=== PATIENT | female | born 1985 | race Caucasian/White ===

== ENCOUNTER 2020-06-24 15:13 | Emergency (ER) | payer MEDICAID ==
[~2020-06-24] VITALS: Ht 157.5 cm; Wt 66.7 kg
[2020-06-24 15:20] VITALS: BP 140/103
--- NOTE | 2020-06-24 15:20 | NUR ---
C/O EPIGASTRIC PAIN X1 WEEK. PT ALSO C/O N/V WITH DIZZINESS. PT STATES SHE HAD STIMULATION TO HER BACK 06/11/2020 UNDER GENERAL ANESTHESIA HX DENIES RX DENIES
[2020-06-24] MEDS ORDERED: MORPHINE SULFATE 4 MG/ML SYR IVP ONE (15:45)
[2020-06-24] MEDS ORDERED: DICYCLOMINE HCL LIQUID 20 MG, ALUMINUM HYD/MAG/SIMETHICONE 30 ML, LIDOCAINE VISCOUS 2% ... PO ONE ×3 (15:45)
[2020-06-24] MEDS ORDERED: ONDANSETRON 4 MG/2 ML VIAL IVP ONE (15:45)
[2020-06-24] MEDS ORDERED: ALUMINUM HYD/MAG/SIMETHICONE 30 ML UDC ONE (16:01)
[2020-06-24] MEDS ORDERED: LIDOCAINE VISCOUS 2% 20 ML UDC ONE (16:01)
[2020-06-24] MEDS ORDERED: DICYCLOMINE HCL LIQUID 10 MG/5 ML UDC ONE (16:02)
[2020-06-24 16:22] LABS: BASOPHILS # (AUTO) 0.1 K/uL (0.00-0.22); BASOPHILS % (AUTO) 0.7 % (0.0-2.0); EOSINOPHILS # (AUTO) 0.2 K/uL (0-0.4); EOSINOPHILS % (AUTO) 1.5 % (0.0-4.0); HEMATOCRIT 37.6 % (36-48); HEMOGLOBIN 12.2 g/dL (12.0-16.0); LYMPHOCYTES # (AUTO) 2.5 K/uL (2.5-16.5); LYMPHOCYTES % (AUTO) 21.5 % (20.5-51.1); MEAN CORPUSCULAR HEMOGLOBIN 29 pg (27-31); MEAN CORPUSCULAR HGB CONC 33 g/dL (33-37); MEAN CORPUSCULAR VOLUME 88.3 fL (80-94); MONOCYTES # (AUTO) 0.7 K/uL (0.8-1.0); MONOCYTES % (AUTO) 5.5 % (1.7-9.3); NEUTROPHILS # (AUTO) 8.4 K/uL (1.8-7.7); NEUTROPHILS % (AUTO) 70.8 % (42.2-75.2); PLATELET COUNT (AUTO) 444 K/uL (140-450); RED BLOOD CELL COUNT(AUTO) 4.26 MIL/uL (4.20-5.40); RED CELL DISTRIBUTION WIDTH 13.9 % (11.6-13.7); WHITE BLOOD COUNT (AUTO) 11.8 K/uL (4.8-10.8)
[2020-06-24 16:40] LABS: ALBUMIN 4.4 g/dL (3.4-5.0); ANION GAP 11.1 (8-16); CARBON DIOXIDE 28.7 mmol/L (21-32); CREATININE 0.7 mg/dL (0.6-1.3); POTASSIUM 3.8 mmol/L (3.5-5.1); TOTAL BILIRUBIN 0.3 mg/dL (0.0-1.0)
[2020-06-24] MEDS ORDERED: KETOROLAC 30 MG/ML VIAL IM ONE (18:30)
--- NOTE | 2020-06-24 19:10 | NUR ---
Report given to RADHA Mills.
--- NOTE | 2020-06-24 19:10 | NUR ---
REPORT RECEIVED FROM RADHA MURPHY FOR CONTINUATION OF CARE.
[2020-06-24 20:16] LABS: APPEARANCE,URINE CLEAR (CLEAR); BILIRUBIN,URINE NEGATIVE (NEGATIVE); BLOOD, URINE NEGATIVE (NEGATIVE); COLOR,URINE YELLOW (YELLOW); LEUKOCYTE ESTERASE ,URINE NEGATIVE (NEGATIVE); NITRITE, URINE NEGATIVE (NEGATIVE); UGLUCOSE NEGATIVE (NEGATIVE)
[2020-06-24] MEDS ORDERED: MAG-27 PO (20:22)
[2020-06-24] MEDS ORDERED: NAPR-54 PO (20:22)
--- NOTE | 2020-06-24 20:30 | NUR ---
Pt states pain is a lot better just a little pain at this time. Pt resting in bed, locked and in lowest position, HOB elevated, VSS. No acute distress noted.
--- NOTE | 2020-06-24 20:59 | NUR ---
Dr. Khan examining patient.
--- NOTE | 2020-06-24 21:00 | NUR ---
IV removed, catheter intact and site benign. Applied folded 4x4 gauze and tape to stop bleeding.
[2020-06-24 21:05] VITALS: BP 135/75
--- NOTE | 2020-06-24 21:05 | NUR ---
Patient discharged with v/s stable. Written and verbal after care instructions given and explained. Patient alert, oriented and verbalized understanding of instructions. Ambulatory with steady gait. All questions addressed prior to discharge. ID band removed. Patient advised to follow up with PMD. Rx of MYLANTA & NAPROXEN given. Patient educated on indication of medication including possible reaction and side effects. Opportunity to ask questions provided and answered.
== END 2020-06-24 21:05 | disposition home or self-care (01) ==
LOC: MED 15:13
DX: K80.20 Calculus of gallbladder without cholecystitis without obstruction (principal); Z79.899 Other long term (current) drug therapy; Z98.890 Other specified postprocedural states
CPT/HCPCS: 36415; 76705; 80053; 81003; 81025; 83690; 85025; 93005; 96372; 96374; 96375; 99285; J1885; J2270; J2405

== ENCOUNTER 2022-07-22 17:09 | Emergency (ER) | payer MEDICAID ==
[~2022-07-22] VITALS: Ht 162.6 cm; Wt 72.6 kg
[~2022-07-22 17:09] MED LIST: MAG-27 PO; NAPR-54 PO
[2022-07-22 17:29] VITALS: BP 132/82
--- NOTE | 2022-07-22 17:50 | NUR ---
patient presenty to er c/o abdominal pain today denies nausea vomiting constipation.
[2022-07-22 18:17] LABS: BASOPHILS # (AUTO) 0.1 K/uL (0.00-0.22); BASOPHILS % (AUTO) 0.7 % (0.0-2.0); EOSINOPHILS # (AUTO) 0.1 K/uL (0-0.4); EOSINOPHILS % (AUTO) 1.5 % (0.0-4.0); HEMATOCRIT 34.4 % (36-48); HEMOGLOBIN 11.7 g/dL (12.0-16.0); LYMPHOCYTES # (AUTO) 3.3 K/uL (2.5-16.5); LYMPHOCYTES % (AUTO) 35.8 % (20.5-51.1); MEAN CORPUSCULAR HEMOGLOBIN 30 pg (27-31); MEAN CORPUSCULAR HGB CONC 34 g/dL (33-37); MEAN CORPUSCULAR VOLUME 86.8 fL (80-94); MONOCYTES # (AUTO) 0.4 K/uL (0.8-1.0); MONOCYTES % (AUTO) 4.9 % (1.7-9.3); NEUTROPHILS # (AUTO) 5.2 K/uL (1.8-7.7); NEUTROPHILS % (AUTO) 57.1 % (42.2-75.2); PLATELET COUNT (AUTO) 390 K/uL (140-450); RED BLOOD CELL COUNT(AUTO) 3.96 MIL/uL (4.20-5.40); RED CELL DISTRIBUTION WIDTH 14.2 % (11.6-13.7); WHITE BLOOD COUNT (AUTO) 9.1 K/uL (4.8-10.8)
[2022-07-22] MEDS ORDERED: ONDANSETRON 4 MG/2 ML VIAL IVP ONE (18:25)
[2022-07-22] MEDS ORDERED: NACL 0.9% 1,000 ML IV ONE (18:25)
[2022-07-22] MEDS ORDERED: MORPHINE SULFATE 4 MG/ML SYR IVP ONE ×2 (18:25→21:20)
[2022-07-22 18:46] LABS: ALBUMIN 3.7 g/dL (3.4-5.0); CARBON DIOXIDE 23.1 mmol/L (21-32); CREATININE 0.9 mg/dL (0.6-1.3); POTASSIUM 4.1 mmol/L (3.5-5.1); TOTAL BILIRUBIN 0.3 mg/dL (0.0-1.0)
[2022-07-22 18:49] LABS: APPEARANCE,URINE CLEAR (CLEAR); BILIRUBIN,URINE NEGATIVE (NEGATIVE); BLOOD, URINE 2+ (NEGATIVE); COLOR,URINE YELLOW (YELLOW); LEUKOCYTE ESTERASE ,URINE NEGATIVE (NEGATIVE); NITRITE, URINE NEGATIVE (NEGATIVE); UGLUCOSE NEGATIVE (NEGATIVE)
[2022-07-22 19:07] LABS: RBC,URINE 11-20 (MOD) /HPF (0-5)
--- NOTE | 2022-07-22 19:20 | NUR ---
REPORT FR AI RN . ALL QUESTION WERE ANSWERED PT RETURN FR CT NAD
[2022-07-22] MEDS ORDERED: FAMO-90 PO ×2 (21:12→23:20)
[2022-07-22] MEDS ORDERED: SIME125T38 PO ×2 (21:12→23:20)
[2022-07-22] MEDS ORDERED: ONDA-188 PO ×2 (21:12→23:20)
[2022-07-22] MEDS ORDERED: ACET-9527 PO ×2 (21:12→23:20)
[2022-07-22] MEDS ORDERED: KETOROLAC 30 MG/ML VIAL IVP ONE (21:20)
--- NOTE | 2022-07-22 21:26 | NUR ---
DR MCKNIGHT AT TO [facility] PT, PT CONTOHAVE ABDO PAIN , DC PLAN DCD BECAUSE OF PERSISTENT PAIN
--- NOTE | 2022-07-22 21:42 | NUR ---
BLOOD CULTURE DONE BY LAB
[2022-07-22] MEDS ORDERED: cefTRIAXone 1,000 MG VIAL ONE (21:44)
[2022-07-22 23:14] VITALS: BP 120/76
--- NOTE | 2022-07-22 23:17 | NUR ---
Patient discharged with v/s stable. Written and verbal after care instructions given and explained. Patient alert, oriented and verbalized understanding of instructions. Ambulatory with SPOUSE to home. All questions addressed prior to discharge. ID band removed. Patient advised to follow up with PMD. Rx of PEPCID NORCO PEPCID given. Patient educated on indication of medication including possible reaction and side effects. Opportunity to ask questions provided and answered.
== END 2022-07-22 23:17 | disposition home or self-care (01) ==
LOC: MED 17:09
DX: K80.20 Calculus of gallbladder without cholecystitis without obstruction (principal); Z20.822 Contact with and (suspected) exposure to COVID-19; Z79.899 Other long term (current) drug therapy
CPT/HCPCS: 36415; 74176; 76705; 80053; 81001; 81025; 83690; 84703; 85025; 87040; 87086; 87426; 96361; 96365; 96375; 96376; 99285; J0696; J1885; J2270; J2405; J7030; Q0092

== ENCOUNTER 2022-09-22 23:58 | Emergency (ER) | payer MEDICAID ==
[~2022-09-22] VITALS: Ht 152.4 cm; Wt 68.0 kg
[~2022-09-22 23:58] MED LIST changes: +ACET-9527 PO; +FAMO-90 PO; +ONDA-188 PO; +SIME125T38 PO
[2022-09-23 00:38] VITALS: BP 120/86; PULSE 82; RESP 16; TEMP 97.3; O2SAT 100
--- NOTE | 2022-09-23 00:45 | NUR ---
TO LOBBY FOLLOWING TRIAGE
[2022-09-23 01:35] LABS: BASOPHILS # (AUTO) 0.1 K/uL (0.00-0.22); BASOPHILS % (AUTO) 0.9 % (0.0-2.0); EOSINOPHILS # (AUTO) 0.2 K/uL (0-0.4); EOSINOPHILS % (AUTO) 1.7 % (0.0-4.0); HEMATOCRIT 35.2 % (36-48); HEMOGLOBIN 11.8 g/dL (12.0-16.0); LYMPHOCYTES # (AUTO) 3.7 K/uL (2.5-16.5); MEAN CORPUSCULAR HEMOGLOBIN 29 pg (27-31); MEAN CORPUSCULAR HGB CONC 34 g/dL (33-37); MEAN CORPUSCULAR VOLUME 87.7 fL (80-94); MONOCYTES # (AUTO) 0.7 K/uL (0.8-1.0); MONOCYTES % (AUTO) 6.2 % (1.7-9.3); NEUTROPHILS # (AUTO) 6.9 K/uL (1.8-7.7); NEUTROPHILS % (AUTO) 59.2 % (42.2-75.2); PLATELET COUNT (AUTO) 388 K/uL (140-450); RED BLOOD CELL COUNT(AUTO) 4.01 MIL/uL (4.20-5.40); RED CELL DISTRIBUTION WIDTH 13.8 % (11.6-13.7); WHITE BLOOD COUNT (AUTO) 11.6 K/uL (4.8-10.8)
[2022-09-23 02:32] LABS: CARBON DIOXIDE 25.6 mmol/L (21-32); CREATININE 0.6 mg/dL (0.6-1.3); POTASSIUM 4.6 mmol/L (3.5-5.1); TOTAL BILIRUBIN 0.4 mg/dL (0.0-1.0)
--- NOTE | 2022-09-23 03:00 | NUR ---
Patient ambulated to bed 12.
--- NOTE | 2022-09-23 03:10 | NUR ---
Patient is a 36/F who came in due to shortness of breath and fatigue x 1 day ago. Patient also noted headache, back pain as well as face and arm numbness a few days ago. No fever, cough/colds noted. PMHx: Denies NKA
[2022-09-23 03:29] VITALS: TEMP 97.3
--- NOTE | 2022-09-23 03:50 | NUR ---
Dr. Ramsay examining patient.
[2022-09-23] MEDS ORDERED: methocarbamoL 500 MG TAB PO STA (04:03)
[2022-09-23] MEDS ORDERED: KETOROLAC 15 MG/ML VIAL IM ONE (04:05)
[2022-09-23] MEDS ORDERED: KETOROLAC 30 MG/ML VIAL ONE (04:11)
--- NOTE | 2022-09-23 06:24 | NUR ---
Patient asleep and comfortable in bed with side rails up and call light within reach. No complaints of pain or signs of acute distress at this time.
[2022-09-23] MEDS ORDERED: IBUP-2213 PO ×2 (06:44→07:10)
[2022-09-23 07:00] VITALS: BP 113/73; PULSE 61; RESP 16; O2SAT 97
== END 2022-09-23 07:00 | disposition home or self-care (01) ==
LOC: MED 23:58
DX: R07.9 Chest pain, unspecified (principal); R51.9 Headache, unspecified; R53.83 Other fatigue; Z98.890 Other specified postprocedural states; Z79.899 Other long term (current) drug therapy
CPT/HCPCS: 36415; 71045; 80053; 81025; 83880; 84484; 85025; 93005; 96372; 99285; J1885

== ENCOUNTER 2023-06-15 21:03 | Emergency (ER) | payer MEDICAID, OTHER ==
[~2023-06-15] VITALS: Ht 152.4 cm; Wt 68.0 kg
[~2023-06-15 21:03] MED LIST changes: +IBUP-2213 PO
[2023-06-15 21:23] VITALS: BP 140/88; PULSE 61; RESP 16; TEMP 97.3; O2SAT 99
[2023-06-15 22:08] LABS: APPEARANCE,URINE CLEAR (CLEAR); BILIRUBIN,URINE NEGATIVE (NEGATIVE); BLOOD, URINE NEGATIVE (NEGATIVE); COLOR,URINE YELLOW (YELLOW); LEUKOCYTE ESTERASE ,URINE NEGATIVE (NEGATIVE); NITRITE, URINE NEGATIVE (NEGATIVE); PROTEIN,URINE NEGATIVE (NEGATIVE); UGLUCOSE NEGATIVE (NEGATIVE); UROBILINOGEN,URINE 0.2 EU/dL (0.2 - 1)
[2023-06-15 22:43] LABS: BASOPHILS # (AUTO) 0.1 K/uL (0.00-0.22); BASOPHILS % (AUTO) 1.2 % (0.0-2.0); EOSINOPHILS # (AUTO) 0.2 K/uL (0-0.4); EOSINOPHILS % (AUTO) 2.1 % (0.0-4.0); HEMATOCRIT 35.5 % (36-48); HEMOGLOBIN 11.9 g/dL (12.0-16.0); LYMPHOCYTES # (AUTO) 3.6 K/uL (2.5-16.5); LYMPHOCYTES % (AUTO) 37.7 % (20.5-51.1); MEAN CORPUSCULAR HEMOGLOBIN 29 pg (27-31); MEAN CORPUSCULAR HGB CONC 34 g/dL (33-37); MEAN CORPUSCULAR VOLUME 85.6 fL (80-94); MONOCYTES # (AUTO) 0.6 K/uL (0.8-1.0); MONOCYTES % (AUTO) 6.4 % (1.7-9.3); NEUTROPHILS # (AUTO) 5.1 K/uL (1.8-7.7); NEUTROPHILS % (AUTO) 52.6 % (42.2-75.2); PLATELET COUNT (AUTO) 413 K/uL (140-450); RED BLOOD CELL COUNT(AUTO) 4.15 MIL/uL (4.20-5.40); RED CELL DISTRIBUTION WIDTH 15.5 % (11.6-13.7); WHITE BLOOD COUNT (AUTO) 9.7 K/uL (4.8-10.8)
[2023-06-15 22:56] LABS: ANION GAP 13.6 (8-16); CALCIUM 9.4 mg/dL (8.5-10.1); CARBON DIOXIDE 26.8 mmol/L (21-32); CREATININE 0.6 mg/dL (0.6-1.3); POTASSIUM 4.4 mmol/L (3.5-5.1)
[2023-06-15 23:05] LABS: ALANINE AMINOTRANSFERASE 30 U/L (12-78); ALBUMIN 3.9 g/dL (3.4-5.0); ALKALINE PHOSPHATASE 72 U/L (50-136); ASPARTATE AMINOTRANSFERASE 16 U/L (15-37); TOTAL BILIRUBIN 0.3 mg/dL (0.0-1.0); TOTAL PROTEIN, SERUM 7.5 g/dL (6.4-8.2)
[2023-06-16] MEDS: KETOROLAC 30 MG/ML VIAL IVP ONE (00:14)
[2023-06-16] MEDS ORDERED: OMEP40EC24 PO (00:51)
[2023-06-16] MEDS ORDERED: ONDA8TAB87 PO (00:51)
[2023-06-16] MEDS ORDERED: IBUP-2213 PO (00:51)
[2023-06-16 01:04] VITALS: BP 134/86; PULSE 77; RESP 16; TEMP 98; O2SAT 98
== END 2023-06-16 01:03 | disposition home or self-care (01) ==
LOC: MED 21:03
DX: R10.13 Epigastric pain (principal); R11.2 Nausea with vomiting, unspecified; R30.0 Dysuria; Z98.890 Other specified postprocedural states; Z79.899 Other long term (current) drug therapy
CPT/HCPCS: 36415; 71045; 80048; 80076; 81003; 81025; 83690; 84484; 85025; 93005; 96374; 99285; J1885